=== PATIENT | female | born 1960 | race African-American/Black ===

== ENCOUNTER 2017-04-05 14:17 | Emergency (ER) | payer OTHER ==
[~2017-04-05] VITALS: Ht 165.1 cm; Wt 63.5 kg
[2017-04-05 14:38] VITALS: BP 144/87
--- NOTE | 2017-04-05 14:41 | Emergency Room Report ---
History of Present Illness General Chief Complaint: Pain Source: Patient Present Illness HPI 56 yo female BIB ambulance complaining of back and hip pain. Reports sharp hip pain. Patient reports falling 2 days ago and being seen by another hospital; states was given pain medication at hospital but no imaging was done at that time. Patient reports taking Ibuprofen for pain; last dose at 1PM. Reports unable to walk secondary to pain. Denies LOC, hitting head. Denies bowel or bladder in continence. Denies fever, chest pain, SOB. Allergies: Coded Allergies: No Known Allergies (Unverified , 04/05/17) Patient History Past Medical History: see triage record Last Menstrual Period: 2009 Reviewed Nursing Documentation: PMH: Agreed, PSxH: Agreed Review of Systems All Other Systems: negative except mentioned in HPI Physical Exam Vital Signs Date Time Temp Pulse Resp B/P (MAP) Pulse Ox O2 Delivery O2 Flow Rate FiO2 04/05/17 14:20 97.9 104 16 147/91 98 Room Air 97.9 Sp02 EP Interpretation: reviewed, normal General Appearance: alert, GCS 15, non-toxic, mild distress Head: normocephalic, atraumatic Eyes: bilateral eye normal inspection, bilateral eye PERRL ENT: hearing grossly normal, normal pharynx, normal voice, TMs + canals normal , uvula midline, moist mucus membranes Neck: normal inspection, full range of motion, no bony tend Respiratory: normal inspection, lungs clear, normal breath sounds, no rhonchi, no respiratory distress, no retraction, no accessory muscle use, no wheezing, speaking full sentences Cardiovascular #1: regular rate, rhythm Gastrointestinal: normal bowel sounds, non tender, soft, no mass, non-distended , no guarding, no rebound Genitourinary: no CVA tenderness Musculoskeletal: back normal, digits/nails normal, gait/station normal, normal range of motion, pelvis stable, tender - right hip Neurologic: alert, oriented x3, responsive, motor strength/tone normal, abnormal gait - secondary to pain Psychiatric: mood/affect normal Skin: no rash, other - no erythema, no edema, no ecchymosis Medical Decision Making PA Attestation Dr. Sidhu is my supervising Physician whom patient management has been discussed with. Diagnostic Impression: Primary Impression: Hip pain Additional Impression: Low back pain ER Course Pt. presents to the ED c/o right hip and low back pain. Ddx considered but are not limited to fracture, sprain, strain, contusion. Vital signs: are WNL, pt. is afebrile Ordered pain medication and x-rays of right hip and pelvis. Patient ORDERS: Xray of right hip and pelvis was ordered, results show no acute fracture, per the preliminary reading. ED COURSE: Patient provided with pain medication in ER. Patient reports feeling better following administration of pain medication. Xray results discussed with patient. Patient observed being able to ambulate independently in ER without difficulty. Patient reports understanding and agreement to treatment plan. Patient results discussed with and x-rays reviewed by Dr. Cook; agrees with treatment plan; patient is stable for discharge. DISCHARGE: -Rx provided for Ibuprofen for pain symptoms. -Rx provided for Lidocaine patches for pain. At this time pt. is stable for d/c to home. Will provide printed patient care instructions, and any necessary prescriptions. Patient instructed to follow with primary care provider in 3 - 5 days and to request further orthopedic follow-up. Care plan and follow up instructions have been discussed with the patient prior to discharge. Patient instructed on RICE method: rest, ice, compression, elevation. Patient instructed to WBAT. Take medications as directed. Patient questions asked and answered. ER precautions given, patient instructed to return to ER immediately for any new or worsening of symptoms. Other X-Ray Diagnostic Results Other X-Ray Diagnostic Results #1: X-Ray ordered: pelvis # of Views/Limited Vs Complete: 1 View Indication: Pain EP Interpretation: Yes PA Xray: Interpretation reviewed, by supervising MD, and agrees with findings. Interpretation: no dislocation, no soft tissue swelling, no fractures Impression: No acute disease MAC Scribe Raven Quezada PA-C Other X-Ray Diagnostic Results #2: X-Ray ordered: left hip # of Views/Limited Vs Complete: 2 View Indication: Pain EP Interpretation: Yes PA Xray: Interpretation reviewed, by supervising MD, and agrees with findings. Interpretation: no dislocation, no soft tissue swelling, no fractures Impression: No acute disease MAC ScribColin Quezada PA-C Last Vital Signs Date Time Temp Pulse Resp B/P (MAP) Pulse Ox O2 Delivery O2 Flow Rate FiO2 04/05/17 14:20 97.9 104 16 147/91 98 Room Air 97.9 Disposition: HOME, SELF-CARE Condition: Stable Scripts Lidocaine (Lidocaine) 1 Each Adh..patch 700 MG TP BID for 7 Days, #14 PATCH Prov: Landen Quezada 04/05/17 Ibuprofen* (MOTRIN*) 600 Mg Tablet 600 MG ORAL Q8H Y for For Pain, #30 TAB 0 Refills Prov: Landen Quezada 04/05/17 Referrals: NOT CHOSEN IPA/MD,REFERRING (PCP) Patient Instructions: Back Pain, Adult, Hip Joint Effusion, Pediatric Additional Instructions: Patient instructed to follow up with primary care provider and discuss further referral to orthopedics. Patient instructed on RICE method: rest, ice, compression, elevation. Patient instructed to WBAT. Patient able to ambulate. Take medications as directed. Patient questions asked and answered. ER precautions given, patient instructed to return to ER immediately for any new or worsening of symptoms. Landen Quezada Apr 05, 2017 14:41
[2017-04-05] MEDS ORDERED: Ketorolac 30mg Inj IM ONE (14:45)
--- NOTE | 2017-04-05 15:48 | Diagnostic Imaging Report ---
Indication: Pain, status post fall Technique: 2 views of the right hip, one view of the pelvis Comparison: none Findings: No acute fractures. No dislocations. Joint spaces are preserved. Normal mineralization. Impression: No acute process
[2017-04-05] MEDS ORDERED: IBUPROFEN600 MG ORAL (16:20)
[2017-04-05] MEDS ORDERED: LIDOCAINE700 M1 TP (16:49)
[2017-04-05 16:55] VITALS: BP 145/93
== END 2017-04-05 16:55 | disposition home or self-care (01) ==
LOC: EMR 14:25
DX: M54.5 Low back pain (principal); M25.551 Pain in right hip
CPT/HCPCS: 72170; 73502; 96372; 99284; J1885